=== PATIENT | male | born 1965 | race Caucasian/White ===

== ENCOUNTER 2017-02-06 07:27 | Emergency (ER) | payer BC, OTHER ==
[2017-02-06] MEDS ORDERED: Metoclopramide IV* 5 MG/ML 2 ML VIAL IV SLOW PU ONE (08:23)
[2017-02-06] MEDS ORDERED: NS 0.9% 1000 ML* 1,000 ML IV ONE (08:23)
[2017-02-06] MEDS ORDERED: Acetaminophen TAB* 325 MG PO ONE (08:23)
[2017-02-06] MEDS ORDERED: diPHENhydraMINE IV* 50 MG/ML 1 ml VIAL (BENADRYL) IV ONE (08:23)
[2017-02-06 08:49] LABS: Hematocrit 50 % (42-52); Hemoglobin 17.2 g/dl (14.0-18.0); Mean Corpuscular HGB Conc 34 g/dl (31-36); Mean Corpuscular Hemoglobin 28 pg (27-31); Mean Corpuscular Volume 80 fL (80-94); Mean Platelet Volume 10 um3 (7.4-10.4); Red Blood Count 6.27 10^6/ul (4.0-5.4); Red Cell Distribution Width 15 % (10.5-15)
--- NOTE | 2017-02-06 08:54 | RAD ---
Indication: Left-sided headaches. Patient on Coumadin. CT of the brain was performed without IV contrast. Ventricular structures are midline. No midline shift is noted. The extra-axial spaces are unremarkable. There is no evidence of intracranial mass or hemorrhage. No other high or low density lesions identified. Likely old lacunar infarct left basal ganglia unchanged from previous exam. Mastoid air cells demonstrates prior mastoidectomy. Paranasal sinuses are clear. IMPRESSION: No intracranial mass or hemorrhage is noted.
[2017-02-06 08:58] VITALS: BP 138/110
[2017-02-06 09:08] LABS: Albumin 4.2 g/dL (3.2-5.2); BUN/Creatinine Ratio 17.2 (8-20); C Reactive Protein 2.57 mg/L (< 5.00); Calcium 9.4 mg/dL (8.6-10.3); EGFR African American 101.7 (>60); EGFR Non-African American 79.1 (>60); Globulin 3.3 g/dL (2-4); Magnesium 1.8 mg/dL (1.9-2.7); Potassium 4.1 mmol/L (3.5-5.0); Total Bilirubin 1.6 mg/dL (0.2-1.0); Total Protein 7.5 g/dL (6.4-8.9)
[2017-02-06 09:47] LABS: TSH (Thyroid Stimulating Horm) 0.93 mcIU/mL (0.34-5.60)
--- NOTE | 2017-02-06 10:42 | ED ---
Georgie Mata Rebecca, scribed for Marv Ruiz MD on 02/06/17 at 0819 . Headache - HPI Summary HPI Summary: Pt is a 51 y/o M who presents to ED c/o HUGHES. Pt woke up at 0430 this morning with a sudden onset HUGHES that has been constant since onset. He was asymptomatic at 0030 this morning upon going to sleep. Pain is in the L-sided temporal region with occasional radiation to the front of the face. Pain is currently severe, ranked 8/10, though severity waxes and wanes and described as sharp. Sx aggravated and alleviated by nothing, unchanged by OTC medication (Tylenol), walking and turning his head. Denies nausea, weakness, numbness, slurred speech , vision loss, photophobia and neck pain. No recent illness. No recent trauma. Is on Coumadin s/p heart valve replacement. No PMHx headaches. - History Of Current Complaint Chief Complaint: EDHeadache Stated Complaint: HEADACHE Time Seen by Provider: 02/06/17 08:11 Hx Obtained From: Patient Onset/Duration: Sudden Onset Initially Headache Was: Moderate Currently Pain Is: Current Pain Scale(0-10)= - 8/10, Severe Timing: Constant Character: Sharp Location of Headache: Temporal - Left sided Radiates to: Face Aggravating Factor: Nothing Allevating Factors: Nothing Associated Signs And Symptoms: Negative - Allergies/Home Medications Allergies/Adverse Reactions: Allergies Allergy/AdvReac Type Severity Reaction Status Date / Time Gluten Meal Allergy GI Upset Verified 04/11/13 13:42 Lisinopril Allergy EXTREMELY Verified 05/20/16 09:17 SLEEPY Metoprolol Allergy EXTREMELY Verified 05/20/16 09:17 SLEEPY PMH/Surg Hx/FS Hx/Imm Hx Endocrine/Hematology History: Denies: Hx Diabetes Cardiovascular History: Reports: Hx Hypertension, Other Cardiovascular Problems/ Disorders - OBESITY Denies: Hx Pacemaker/ICD History: Denies: Hx Renal Disease Sensory History: Denies: Hx Hearing Aid Psychiatric History: Denies: Hx Panic Disorder - Surgical History Surgery Procedure, Year, and Place: HEART VALVE REPLACEMENT 2000 IS MECHANICAL - AT [facility] MECHANICAL AORTIC VALVE - [id number] - CONDITIONAL 5 UP TO 3T - MAX.SPATIAL GRADIENT less than or equal to 3000 Gauss/ cm;. T-TUBES FOR DRAINAGE;. TONSILLECTOMY; Infectious Disease History: No Infectious Disease History: Denies: Traveled Outside the [place] in Last 30 Days - Family History Known Family History: Positive: Cardiac Disease, Hypertension Negative: Diabetes - Social History Alcohol Use: Occasionally Hx Substance Use: No Substance Use Type: Reports: None Hx Tobacco Use: No Smoking Status (MU): Former Smoker Review of Systems Positive: Other - Denies vision loss. Negative: Photophobia Negative: Nausea Negative: Arthralgia - Denies neck pain Positive: Headache - /. Negative: Weakness, Numbness, Slurred Speech All Other Systems Reviewed And Are Negative: Yes Physical Exam - Summary Physical Exam Summary: Gen: well-appearing, no pain distress Skin: warm, color reflects adequate perfusion, dry Head: normal Eyes: EOMI, EDIL ENT: normal Neck: supple, nontender Resp: CTA, breath sounds present Cardio: RRR Abd: soft, nontender Bowel: present Musc: normal, strength/ROM intact Neuro: sensory/motor intact, A&O x3. Slightly slurred speech, but that is chronic. GCS is 15. Psych: affect/mood appropriate Triage Information Reviewed: Yes Vital Signs On Initial Exam: Initial Vitals Temp Pulse Resp BP Pulse Ox 97.8 F 87 17 170/112 95 02/06/17 07:36 02/06/17 07:36 02/06/17 07:36 02/06/17 07:36 02/06/17 07:36 Vital Signs Reviewed: Yes - Nadine Coma Scale Coma Scale Total: 15 Diagnostics - Vital Signs Vital Signs Temp Pulse Resp BP Pulse Ox 02/06/17 08:00 85 146/97 95 02/06/17 07:55 87 150/102 97 02/06/17 07:42 97.9 F 85 18 170/112 98 02/06/17 07:36 97.8 F 87 17 170/112 95 - Laboratory Lab Results: Lab Results 02/06/17 02/06/17 02/06/17 Range/Units 08:38 08:38 08:38 WBC 8.0 (3.5-10.8) 10^3/ul RBC 6.27 H (4.0-5.4) 10^6/ul Hgb 17.2 (14.0-18.0) g/dl Hct 50 (42-52) % MCV 80 (80-94) fL MCH 28 (27-31) pg MCHC 34 (31-36) g/dl RDW 15 (10.5-15) % Plt Count 139 L (150-450) 10^3/ul MPV 10 (7.4-10.4) um3 Neut % (Auto) 64.4 (38-83) % Lymph % (Auto) 22.3 L (25-47) % [place] % (Auto) 10.1 H (1-9) % Eos % (Auto) 2.5 (0-6) % Baso % (Auto) 0.7 (0-2) % Absolute Neuts (auto) 5.1 (1.5-7.7) 10^3/ul Absolute Lymphs (auto) 1.8 (1.0-4.8) 10^3/ul Absolute Monos (auto) 0.8 (0-0.8) 10^3/ul Absolute Eos (auto) 0.2 (0-0.6) 10^3/ul Absolute Basos (auto) 0.1 (0-0.2) 10^3/ul Absolute Nucleated RBC 0.01 10^3/ul Nucleated RBC % 0.1 INR (Anticoag Therapy) 2.74 H (0.89-1.11) APTT 53.2 H (26.0-36.3) seconds Sodium 132 L (133-145) mmol/L Potassium 4.1 (3.5-5.0) mmol/L Chloride 99 L (101-111) mmol/L Carbon Dioxide 25 (22-32) mmol/L Anion Gap 8 (2-11) mmol/L BUN 17 (6-24) mg/dL Creatinine 0.99 (0.67-1.17) mg/dL Est GFR ( Amer) 101.7 (>60) Est GFR (Non-Af Amer) 79.1 (>60) BUN/Creatinine Ratio 17.2 (8-20) Glucose 124 H (70-100) mg/dL Lactic Acid (0.5-2.0) mmol/L Calcium 9.4 (8.6-10.3) mg/dL Magnesium 1.8 L (1.9-2.7) mg/dL Total Bilirubin 1.60 H (0.2-1.0) mg/dL AST 36 (13-39) U/L ALT 43 (7-52) U/L Alkaline Phosphatase 72 (34-104) U/L C-Reactive Protein 2.57 (< 5.00) mg/L Total Protein 7.5 (6.4-8.9) g/dL Albumin 4.2 (3.2-5.2) g/dL Globulin 3.3 (2-4) g/dL Albumin/Globulin Ratio 1.3 (1-3) TSH 0.93 (0.34-5.60) mcIU/mL 02/06/17 Range/Units 08:38 WBC (3.5-10.8) 10^3/ul RBC (4.0-5.4) 10^6/ul Hgb (14.0-18.0) g/dl Hct (42-52) % MCV (80-94) fL MCH (27-31) pg MCHC (31-36) g/dl RDW (10.5-15) % Plt Count (150-450) 10^3/ul MPV (7.4-10.4) um3 Neut % (Auto) (38-83) % Lymph % (Auto) (25-47) % [place] % (Auto) (1-9) % Eos % (Auto) (0-6) % Baso % (Auto) (0-2) % Absolute Neuts (auto) (1.5-7.7) 10^3/ul Absolute Lymphs (auto) (1.0-4.8) 10^3/ul Absolute Monos (auto) (0-0.8) 10^3/ul Absolute Eos (auto) (0-0.6) 10^3/ul Absolute Basos (auto) (0-0.2) 10^3/ul Absolute Nucleated RBC 10^3/ul Nucleated RBC % INR (Anticoag Therapy) (0.89-1.11) APTT (26.0-36.3) seconds Sodium (133-145) mmol/L Potassium (3.5-5.0) mmol/L Chloride (101-111) mmol/L Carbon Dioxide (22-32) mmol/L Anion Gap (2-11) mmol/L BUN (6-24) mg/dL Creatinine (0.67-1.17) mg/dL Est GFR ( Amer) (>60) Est GFR (Non-Af Amer) (>60) BUN/Creatinine Ratio (8-20) Glucose (70-100) mg/dL Lactic Acid 1.6 (0.5-2.0) mmol/L Calcium (8.6-10.3) mg/dL Magnesium (1.9-2.7) mg/dL Total Bilirubin (0.2-1.0) mg/dL AST (13-39) U/L ALT (7-52) U/L Alkaline Phosphatase (34-104) U/L C-Reactive Protein (< 5.00) mg/L Total Protein (6.4-8.9) g/dL Albumin (3.2-5.2) g/dL Globulin (2-4) g/dL Albumin/Globulin Ratio (1-3) TSH (0.34-5.60) mcIU/mL Result Diagrams: 02/06/17 08:38 02/06/17 08:38 Lab Statement: Any lab studies that have been ordered have been reviewed, and results considered in the medical decision making process. - CT Brain CT CT Interpretation: No Acute Changes - No intracranial mass or hemorrhage is noted. CT Interpretation Completed By: Radiologist National Institutes Of Health - NIH Scale Level of Consciousness: Alert/Keenly Responsive Ask Patient the Month and His/Her Age: Both Correct Ask Pt to Open/Close Eyes and Human Resources Temp/Release Non-Paretic Hand: Both Correctly Best Gaze (Only Horizontal Eye Movement): Normal Visual Field Testing: No Visual Loss Facial Paresis-Pt to Smile & Close Eyes or Grimace Symmetry: Normal/Symmetrical Motor Function - Right Arm: No Drift-Holds 10 Seconds Motor Function - Left Arm: No Drift-Holds 10 Seconds Motor Function - Right Leg: No Drift-Holds 10 Seconds Motor Function - Left Leg: No Drift-Holds 10 Seconds Limb Ataxia-Must be out of Proportion to Weakness Present: Absent Sensory (Use Pinprick to Test Arms/Legs/Trunk/Face): Normal Best Language (Describe Picture, Name Items): No Aphasia Dysarthria (Read Several Words): Normal Extinction and Inattention: No Abnormality Total Score: 0 Re-Evaluation - Re-Evaluation First Eval Re-Evaluation Time: 10:37 Change: Improved Comment: Headache is resolved Headache Course/Dx - Course Course Of Treatment: A 51 y/o M presents to the ED with a CC of sharp severe headache since waking up at 0030. He denies nausea, weakness, numbness, slurred speech, vision loss, photophobia and neck pain. No recent illness. No recent trauma. Is on Coumadin s/p heart valve replacement. No PMHx headaches. Pt received Reglan, Benadryl and Tylenol in the course of the ED. Head CT reveals no acute findings. Assessment/Plan: DISCUSSED RESULTS WITH PATIENT. HUGHES GONE AFTER IVF, BENADRYL, REGLAN, ACETAMINOPHEN AND SLEEP. DISCHARGE HOME STABLE. NO CRITICAL CARE TIME. - Diagnoses Provider Diagnoses: Headache Discharge - Discharge Plan Condition: Stable Disposition: HOME Patient Education Materials: General Headache (ED) Referrals: Demetrius Riggins MD [Primary Care Provider] - Additional Instructions: FOLLOW UP WITH YOUR DOCTOR. RETURN TO THE EMERGENCY DEPARTMENT FOR ANY WORSENING OF YOUR CONDITION OR QUESTIONS OR CONCERNS. The documentation as recorded by the Georgie avila Rebecca accurately reflects the service I personally performed and the decisions made by me, Marv Ruiz MD.
== END 2017-02-06 10:46 | disposition home or self-care (01) ==
LOC: ED 07:27
DX: R51 Headache (principal); I10 Essential (primary) hypertension; Z95.2 Presence of prosthetic heart valve; Z79.01 Long term (current) use of anticoagulants; Z88.8 Allergy status to other drugs, medicaments and biological substances; Z87.891 Personal history of nicotine dependence
CPT/HCPCS: 36415; 70450; 80053; 83605; 83735; 84443; 85025; 85610; 85730; 86140; 96361; 96374; 96375; 99283; A9270-GY; J1200

== ENCOUNTER 2017-04-01 19:18 | Emergency (ER) | payer BC ==
[2017-04-01 21:54] LABS: Hematocrit 50 % (42-52); Hemoglobin 16.7 g/dl (14.0-18.0); Mean Corpuscular HGB Conc 34 g/dl (31-36); Mean Corpuscular Hemoglobin 28 pg (27-31); Mean Corpuscular Volume 82 fL (80-94); Mean Platelet Volume 10 um3 (7.4-10.4); Red Blood Count 6.06 10^6/ul (4.0-5.4); Red Cell Distribution Width 15 % (10.5-15); White Blood Count 8.7 10^3/ul (3.5-10.8)
[2017-04-01 22:09] LABS: Albumin 4.1 g/dL (3.2-5.2); BUN/Creatinine Ratio 14.5 (8-20); Calcium 9.3 mg/dL (8.6-10.3); EGFR African American 89.7 (>60); EGFR Non-African American 69.8 (>60); Globulin 3.1 g/dL (2-4); Magnesium 1.9 mg/dL (1.9-2.7); Potassium 3.9 mmol/L (3.5-5.0); Total Bilirubin 1.3 mg/dL (0.2-1.0); Total Protein 7.2 g/dL (6.4-8.9)
[2017-04-01 22:11] LABS: Troponin I 0.03 ng/mL (<0.04)
--- NOTE | 2017-04-01 22:29 | RAD ---
Indication: Palpitations. Chest pain, shortness of breath, diaphoresis. Cardiac valvular disease. Post aortic valve replacement. Comparison: June 02, 2016 Technique: Upright AP 2130 hours Report: Suboptimal inspiration for this patient compared with the prior exam with associated crowding of the pulmonary markings. Accounting for this there is no compelling alveolar consolidation. Negative for pleural effusion or pneumothorax. Median sternotomy wires. Cardiomegaly. Prosthetic aortic valve. Unremarkable central pulmonary vasculature. IMPRESSION: Suboptimal inspiration limits assessment. Mild interstitial edema is not excluded.
[2017-04-01] MEDS ORDERED: Magnesium Oxide TAB* 400 MG PO ONE (22:46)
[2017-04-02 01:39] VITALS: BP 133/101
--- NOTE | 2017-04-02 01:41 | ED ---
Pamela Mata Alfonso, scribed for Christine Simeon MD on 04/01/17 at 2148 . Palpitations / Dysrhythmia - HPI Summary HPI Summary: This patient is a 52 year old M presenting to [facility] accompanied by niece with a chief complaint of palpitations at 1830 today. The CC is described as a boom lasting for 3 minutes. He reports he heard the boom but did not feel it. Pt rates the pain 0/10 in severity. Symptoms aggravated by nothing. Pt denies CP, SOB, and diaphoresis. He had dental work done today. Pt lives alone. He denies substance, ETOH, and tobacco use. PMHx of HTN, asthma, and mechanical heart valve. - History of Current Complaint Chief Complaint: EDDysrhythmPalp Time Seen by Provider: 04/01/17 20:51 Hx Obtained From: Patient Onset/Duration: Sudden Onset - 1829 today, Lasting Minutes - 3, Resolved Timing: Constant Severity Initially: Moderate Severity Currently: None Character: Pounding - "Boom" Aggravating: Nothing - Allergy/Home Medications Allergies/Adverse Reactions: Allergies Allergy/AdvReac Type Severity Reaction Status Date / Time Gluten Meal Allergy GI Upset Verified 04/11/13 13:42 Lisinopril Allergy EXTREMELY Verified 05/20/16 09:17 SLEEPY Metoprolol Allergy EXTREMELY Verified 05/20/16 09:17 SLEEPY PMH/Surg Hx/FS Hx/Imm Hx Endocrine/Hematology History: Denies: Hx Diabetes Cardiovascular History: Reports: Hx Hypertension, Other Cardiovascular Problems/ Disorders - mechanical heart valve Denies: Hx Pacemaker/ICD Respiratory History: Reports: Hx Asthma History: Denies: Hx Renal Disease Sensory History: Denies: Hx Hearing Aid Psychiatric History: Denies: Hx Panic Disorder - Surgical History Surgery Procedure, Year, and Place: HEART VALVE REPLACEMENT 2000 IS MECHANICAL - AT [facility] MECHANICAL AORTIC VALVE - [id number] - CONDITIONAL 5 UP TO 3T - MAX.SPATIAL GRADIENT less than or equal to 3000 Gauss/ cm;. T-TUBES FOR DRAINAGE;. TONSILLECTOMY; Infectious Disease History: No Infectious Disease History: Denies: Traveled Outside the [place] in Last 30 Days - Family History Known Family History: Positive: Cardiac Disease, Hypertension, Diabetes - Social History Lives: Alone Alcohol Use: Occasionally Hx Substance Use: No Substance Use Type: Reports: None Hx Tobacco Use: No Smoking Status (MU): Former Smoker Review of Systems Negative: Skin Diaphoresis Positive: Palpitations - "boom" 3 minutes. Negative: Chest Pain Negative: Shortness Of Breath All Other Systems Reviewed And Are Negative: Yes Physical Exam Triage Information Reviewed: Yes Vital Signs On Initial Exam: Initial Vitals Temp Pulse Resp BP Pulse Ox 97.9 F 98 16 174/107 96 04/01/17 19:30 04/01/17 19:30 04/01/17 19:30 04/01/17 19:30 04/01/17 19:30 Vital Signs Reviewed: Yes Appearance: Positive: Well-Appearing, No Pain Distress, Obese Skin: Positive: Warm, Skin Color Reflects Adequate Perfusion, Dry Eyes: Positive: EOMI, EDIL ENT: Positive: Pharynx normal, TMs normal Neck: Positive: Supple, Nontender Respiratory/Lung Sounds: Positive: Clear to Auscultation, Breath Sounds Present. Negative: Rales, Rhonchi, Wheezes Cardiovascular: Positive: Tachycardia, Other - No gallop. Negative: Murmur, Rub Abdomen Description: Positive: Nontender, Soft, Other: - No rebound. Negative: Distended, Guarding Bowel Sounds: Positive: Present Musculoskeletal: Positive: Strength/ROM Intact, Other - No edema Neurological: Positive: Sensory/Motor Intact, Alert, Oriented to Person Place, Time, CN Intact II-III - 2-12 Psychiatric: Positive: Affect/Mood Appropriate - Nadine Coma Scale Coma Scale Total: 15 Diagnostics - Vital Signs Vital Signs Temp Pulse Resp BP Pulse Ox 04/01/17 20:29 97.9 F 98 16 146/107 95 04/01/17 19:30 97.9 F 98 16 174/107 96 - Laboratory Lab Results: Lab Results 04/01/17 04/01/17 04/01/17 Range/Units 21:45 21:45 21:45 WBC 8.7 (3.5-10.8) 10^3/ul RBC 6.06 H (4.0-5.4) 10^6/ul Hgb 16.7 (14.0-18.0) g/dl Hct 50 (42-52) % MCV 82 (80-94) fL MCH 28 (27-31) pg MCHC 34 (31-36) g/dl RDW 15 (10.5-15) % Plt Count 135 L (150-450) 10^3/ul MPV 10 (7.4-10.4) um3 Neut % (Auto) 47.5 (38-83) % Lymph % (Auto) 36.1 (25-47) % [place] % (Auto) 11.7 H (1-9) % Eos % (Auto) 3.9 (0-6) % Baso % (Auto) 0.8 (0-2) % Absolute Neuts (auto) 4.1 (1.5-7.7) 10^3/ul Absolute Lymphs (auto) 3.2 (1.0-4.8) 10^3/ul Absolute Monos (auto) 1.0 H (0-0.8) 10^3/ul Absolute Eos (auto) 0.3 (0-0.6) 10^3/ul Absolute Basos (auto) 0.1 (0-0.2) 10^3/ul Absolute Nucleated RBC 0.01 10^3/ul Nucleated RBC % 0.1 INR (Anticoag Therapy) 2.96 H (0.89-1.11) Sodium 137 (133-145) mmol/L Potassium 3.9 (3.5-5.0) mmol/L Chloride 101 (101-111) mmol/L Carbon Dioxide 31 (22-32) mmol/L Anion Gap 5 (2-11) mmol/L BUN 16 (6-24) mg/dL Creatinine 1.10 (0.67-1.17) mg/dL Est GFR ( Amer) 89.7 (>60) Est GFR (Non-Af Amer) 69.8 (>60) BUN/Creatinine Ratio 14.5 (8-20) Glucose 134 H (70-100) mg/dL Lactic Acid (0.5-2.0) mmol/L Calcium 9.3 (8.6-10.3) mg/dL Magnesium 1.9 (1.9-2.7) mg/dL Total Bilirubin 1.30 H (0.2-1.0) mg/dL AST 35 (13-39) U/L ALT 43 (7-52) U/L Alkaline Phosphatase 63 (34-104) U/L Troponin I 0.03 (<0.04) ng/mL Total Protein 7.2 (6.4-8.9) g/dL Albumin 4.1 (3.2-5.2) g/dL Globulin 3.1 (2-4) g/dL Albumin/Globulin Ratio 1.3 (1-3) 04/01/17 04/02/17 Range/Units 21:45 00:30 WBC (3.5-10.8) 10^3/ul RBC (4.0-5.4) 10^6/ul Hgb (14.0-18.0) g/dl Hct (42-52) % MCV (80-94) fL MCH (27-31) pg MCHC (31-36) g/dl RDW (10.5-15) % Plt Count (150-450) 10^3/ul MPV (7.4-10.4) um3 Neut % (Auto) (38-83) % Lymph % (Auto) (25-47) % [place] % (Auto) (1-9) % Eos % (Auto) (0-6) % Baso % (Auto) (0-2) % Absolute Neuts (auto) (1.5-7.7) 10^3/ul Absolute Lymphs (auto) (1.0-4.8) 10^3/ul Absolute Monos (auto) (0-0.8) 10^3/ul Absolute Eos (auto) (0-0.6) 10^3/ul Absolute Basos (auto) (0-0.2) 10^3/ul Absolute Nucleated RBC 10^3/ul Nucleated RBC % INR (Anticoag Therapy) (0.89-1.11) Sodium (133-145) mmol/L Potassium (3.5-5.0) mmol/L Chloride (101-111) mmol/L Carbon Dioxide (22-32) mmol/L Anion Gap (2-11) mmol/L BUN (6-24) mg/dL Creatinine (0.67-1.17) mg/dL Est GFR ( Amer) (>60) Est GFR (Non-Af Amer) (>60) BUN/Creatinine Ratio (8-20) Glucose (70-100) mg/dL Lactic Acid 1.3 (0.5-2.0) mmol/L Calcium (8.6-10.3) mg/dL Magnesium (1.9-2.7) mg/dL Total Bilirubin (0.2-1.0) mg/dL AST (13-39) U/L ALT (7-52) U/L Alkaline Phosphatase (34-104) U/L Troponin I 0.03 (<0.04) ng/mL Total Protein (6.4-8.9) g/dL Albumin (3.2-5.2) g/dL Globulin (2-4) g/dL Albumin/Globulin Ratio (1-3) Result Diagrams: 04/01/17 21:45 04/01/17 21:45 Lab Statement: Any lab studies that have been ordered have been reviewed, and results considered in the medical decision making process. - Radiology CXR Radiology Interpretation Completed By: Radiologist - Suboptimal inspiration limits assessment. Mild interstitial edema is not excluded. - EKG 1941 Cardiac Rate: Tachycardia - BPM 94 EKG Rhythm: Sinus Tachycardia EKG Interpretation: Frequent PVCs EKG Comparison: Other - No PVCs at 01/10/16 Course/Dx - Course Course Of Treatment: 52 yo male who heard a boom in his chest with ekg showing frequent pvc's 6 hour trop negative. borderline low potassium and mag ok both repleted - Diagnoses Provider Diagnoses: Palpitations Discharge - Discharge Plan Condition: Stable Disposition: HOME Patient Education Materials: Palpitations (ED) Referrals: Demetrius Riggins MD [Primary Care Provider] - 3 Days The documentation as recorded by the Pamela avila Alfonso accurately reflects the service I personally performed and the decisions made by me, Christine Simeon MD.
== END 2017-04-02 01:47 | disposition home or self-care (01) ==
LOC: ED 19:18
DX: R00.2 Palpitations (principal); Z95.2 Presence of prosthetic heart valve; I10 Essential (primary) hypertension; J45.909 Unspecified asthma, uncomplicated; Z87.891 Personal history of nicotine dependence
CPT/HCPCS: 36415; 71010; 80053; 83605; 83735; 84484; 85025; 85610; 93005; 99283

== ENCOUNTER 2019-02-17 19:08 | Emergency (ER) | payer BC ==
[2019-02-17 19:16] VITALS: BP 167/109
== END 2019-02-17 21:35 | disposition left against medical advice (07) ==
LOC: ED 19:08
DX: R51 Headache (principal); Z53.21 Procedure and treatment not carried out due to patient leaving prior to being seen by health care provider

== ENCOUNTER 2023-09-09 07:07 | Observation (INO) ==
[2023-09-09 07:41] LABS: ABS Basophils 0.1 10^3/uL (0.0-0.1); ABS Eosinophils 0.2 10^3/uL (0.0-0.5); ABS Lymphocytes 1.7 10^3/uL (1.0-4.8); ABS Monocytes 1.2 10^3/uL (0.0-1.1); ABS Neutrophils 5.3 10^3/uL (1.5-7.6); ABS Nucleated RBC 0.01 10^3/ul; Eosinophil % 2.1 %; Hematocrit 40.7 % (38-53); Hemoglobin 13.8 g/dL (13.2-16.3); Lymphocyte % 20.2 %; Mean Corpuscular Hemoglobin 28.7 pg (27-33); Mean Corpuscular Hgb Conc 33.9 g/dL (31-36); Mean Corpuscular Volume 84.6 fL (80-97); Nucleated Red Blood Cells % 0.1 %/100WBC (0.0-0.8); Platelet Count 150 10^3/uL (150-450); Red Blood Count 4.81 10^6/uL (4.06-5.63); White Blood Count 8.5 10^3/uL (3.6-10.2)
[2023-09-09] MEDS ORDERED: NS 0.9% 1000 ml BAG 1,000 ML IV ONE (07:49)
[2023-09-09] MEDS ORDERED: Metoclopramide 5 MG/ML VIAL (10 mg) IV ONE (07:50)
[2023-09-09 07:52] LABS: Albumin 3.9 g/dL (3.2-5.2); Albumin/Globulin Ratio 1.5 (1-3); Calcium 8.5 mg/dL (8.6-10.3); Creatinine, Serum 1.29 mg/dL (0.67-1.17); Globulin 2.6 g/dL (2-4); Potassium 3.8 mmol/L (3.5-5.0); Total Bilirubin 2.6 mg/dL (0.2-1.0); Total Protein 6.5 g/dL (6.4-8.9); eGFR CKD-EPI 63.5 (>60)
[2023-09-09 08:23] LABS: Magnesium 1.8 mg/dL (1.9-2.7)
[2023-09-09 08:50] LABS: INR 3.45 (0.83-1.13)
[2023-09-09 09:10] LABS: High Sensitivity Troponin 1 Hr 24 pg/mL (<20)
[2023-09-09] MEDS ORDERED: Magnesium Sulfate 2 gm BAG 2 GM/50 ML BAG IVPB ONE (09:58)
[2023-09-09] MEDS ORDERED: Furosemide 40 mg/4 ml IV VIAL IV ONE ×2 (12:09→15:01)
[2023-09-09] MEDS ORDERED: Warfarin per PHARMACY **NOTE FOLLOW UP SCH (15:00)
[2023-09-09] MEDS: Metoprolol Tartrate 5 mg VIAL 5 ml VIAL (1 mg/ml) IV PRN ×2 (16:32→21:06)
[2023-09-09] MEDS ORDERED: Warfarin - No Order Today **NOTE FOLLOW UP ONE (17:00)
[2023-09-09] MEDS: Warfarin DAILY REMINDER **NOTE FOLLOW UP SCH (18:23)
[2023-09-09] MEDS ORDERED: Lidocaine PATCH 4% TOPICAL PRN (21:12)
[2023-09-09] MEDS ORDERED: Metoprolol Tartrate 5 mg VIAL 5 ml VIAL (1 mg/ml) IV ONE (22:35)
[2023-09-10] MEDS ORDERED: Metoprolol Tartrate 5 mg VIAL 5 ml VIAL (1 mg/ml) IV ONE (01:08)
[2023-09-10] MEDS ORDERED: Haloperidol 5 mg/ml SDV IV/IM 5 MG/ML AMP IM ONE (01:21)
[2023-09-10 05:56] LABS: Hematocrit 40.7 % (38-53); Hemoglobin 14.1 g/dL (13.2-16.3); Mean Corpuscular Hemoglobin 29.3 pg (27-33); Mean Corpuscular Hgb Conc 34.6 g/dL (31-36); Mean Corpuscular Volume 84.6 fL (80-97); Mean Platelet Volume 10.3 fL (7.5-11.2); Platelet Count 151 10^3/uL (150-450); Red Blood Count 4.81 10^6/uL (4.06-5.63); White Blood Count 8.9 10^3/uL (3.6-10.2)
[2023-09-10 06:03] LABS: INR 3.68 (0.83-1.13)
[2023-09-10 06:41] LABS: Albumin 4.1 g/dL (3.2-5.2); Albumin/Globulin Ratio 1.5 (1-3); Calcium 8.9 mg/dL (8.6-10.3); Creatinine, Serum 1.18 mg/dL (0.67-1.17); Globulin 2.7 g/dL (2-4); Potassium 3.9 mmol/L (3.5-5.0); Total Bilirubin 3.5 mg/dL (0.2-1.0); Total Protein 6.8 g/dL (6.4-8.9); eGFR CKD-EPI 70.6 (>60)
[2023-09-10] MEDS ORDERED: Furosemide 40 mg/4 ml IV VIAL IV ONE ×2 (09:00)
[2023-09-10] MEDS ORDERED: Midazolam 10 mg/10 ml VIAL 1 mg/ml 10 ml VIAL (10 mg) IV SLOW PU ONE (10:04)
[2023-09-10] MEDS ORDERED: fentaNYL 100 mcg/2 ml 50 MCG/ML VIAL IV SLOW PU ONE (10:04)
[2023-09-10] MEDS: Metoprolol Tartrate 5 mg VIAL 5 ml VIAL (1 mg/ml) IV PRN (14:00)
[2023-09-10] MEDS ORDERED: fentaNYL 100 mcg/2 ml 50 MCG/ML VIAL ONE (15:23)
[2023-09-10] MEDS ORDERED: Midazolam 5 mg/5 ml VIAL 1 mg/ml 5 ml VIAL (5 mg) ONE (15:23)
[2023-09-10] MEDS ORDERED: Naloxone 0.4 mg VIAL 0.4 mg/ml 1 ml VIAL ONE (15:23)
[2023-09-10] MEDS ORDERED: Flumazenil 0.5 mg/5 ml 0.1 MG/ML 5 ml VIAL ONE (15:23)
[2023-09-10] MEDS ORDERED: Sulfur Hexaflouride MICROSPHR 25 MG VIAL ONE (15:59)
[2023-09-10] MEDS: Warfarin DAILY REMINDER **NOTE FOLLOW UP SCH (17:01)
[2023-09-11 06:55] LABS: INR 3.24 (0.83-1.13)
[2023-09-11 07:07] LABS: Calcium 8.9 mg/dL (8.6-10.3); Creatinine, Serum 1.11 mg/dL (0.67-1.17)
[2023-09-11] MEDS ORDERED: Furosemide 40 mg/4 ml IV VIAL IV SLOW PU ONE (10:12)
[2023-09-11 16:25] VITALS: BP 118/79
== END 2023-09-11 15:45 | disposition home or self-care (01) ==
LOC: EDHOLD 07:07 → ED 07:07 → MEDTELE 15:16
PROVIDERS: ADMIT Internal Medicine; ATTEND Internal Medicine
PROC: CARDVER (ICD-10-PCS; 2023-09-10 15:15)

== ENCOUNTER 2023-09-11 22:33 | Inpatient (IN) ==
[2023-09-11 23:09] LABS: ABS Basophils 0.1 10^3/uL (0.0-0.1); ABS Eosinophils 0.1 10^3/uL (0.0-0.5); ABS Lymphocytes 1.4 10^3/uL (1.0-4.8); ABS Monocytes 1.2 10^3/uL (0.0-1.1); ABS Neutrophils 6.1 10^3/uL (1.5-7.6); ABS Nucleated RBC 0.01 10^3/ul; Eosinophil % 1.4 %; Hematocrit 41.9 % (38-53); Hemoglobin 14.9 g/dL (13.2-16.3); Lymphocyte % 15.8 %; Mean Corpuscular Hemoglobin 29.4 pg (27-33); Mean Corpuscular Hgb Conc 35.5 g/dL (31-36); Mean Corpuscular Volume 82.9 fL (80-97); Nucleated Red Blood Cells % 0.2 %/100WBC (0.0-0.8); Platelet Count 180 10^3/uL (150-450); Red Blood Count 5.06 10^6/uL (4.06-5.63); Red Cell Distribution Width 15.1 % (12-17)
[2023-09-11] MEDS ORDERED: Digoxin IV 0.5 MG/2 ML AMP (0.25 MG/ML) IV SLOW PU ONE (23:24)
[2023-09-11 23:34] LABS: Albumin 4.3 g/dL (3.2-5.2); Albumin/Globulin Ratio 1.5 (1-3); C Reactive Protein 22.04 mg/L (<8.01); Calcium 8.8 mg/dL (8.6-10.3); Creatinine, Serum 0.98 mg/dL (0.67-1.17); Globulin 2.9 g/dL (2-4); Total Bilirubin 3.6 mg/dL (0.2-1.0); Total Protein 7.2 g/dL (6.4-8.9); eGFR CKD-EPI 88.3 (>60)
[2023-09-12 00:45] LABS: INR 2.87 (0.83-1.13)
[2023-09-12 01:12] LABS: High Sensitivity Troponin 1 Hr 27 pg/mL (<20)
[2023-09-12] MEDS ORDERED: Iodixanol (CONTRAST) 320 MG/ML 100 ML SDV IV ONE (02:07)
[2023-09-12 04:18] LABS: Urine Appearance Clear; Urine Bilirubin Negative (Negative); Urine Blood Negative (Negative); Urine Color Yellow; Urine Glucose Negative (Negative); Urine Ketones Negative (Negative); Urine Nitrite Negative (Negative); Urine Protein Negative (Negative); Urine Specific Gravity 1.026 (1.002-1.030); Urine Urobilinogen Negative (Negative)
[2023-09-12 04:28] LABS: Urine Benzodiazepine Screen None Detected (None Detect); Urine Cannabinoids Screen None Detected (None Detect); Urine Opiates Screen None Detected (None Detect)
[2023-09-12] MEDS ORDERED: Warfarin per PHARMACY **NOTE FOLLOW UP SCH (06:00)
[2023-09-12] MEDS ORDERED: Furosemide 40 mg/4 ml IV VIAL IV SLOW PU ONE (06:33)
[2023-09-12] MEDS: Pantoprazole VIAL 40 MG VIAL IV SCH (06:44)
[2023-09-12] MEDS ORDERED: Furosemide 20 mg/2 ml IV VIAL IV SLOW PU ONE (06:45)
[2023-09-12 07:17] LABS: ABS Basophils 0.1 10^3/uL (0.0-0.1); ABS Eosinophils 0.2 10^3/uL (0.0-0.5); ABS Lymphocytes 1.8 10^3/uL (1.0-4.8); ABS Monocytes 0.9 10^3/uL (0.0-1.1); ABS Neutrophils 3.8 10^3/uL (1.5-7.6); ABS Nucleated RBC 0.01 10^3/ul; Eosinophil % 2.5 %; Hematocrit 38.7 % (38-53); Hemoglobin 13.3 g/dL (13.2-16.3); Lymphocyte % 26.6 %; Mean Corpuscular Hemoglobin 28.7 pg (27-33); Mean Corpuscular Hgb Conc 34.3 g/dL (31-36); Mean Corpuscular Volume 83.7 fL (80-97); Mean Platelet Volume 9.9 fL (7.5-11.2); Nucleated Red Blood Cells % 0.1 %/100WBC (0.0-0.8); Platelet Count 150 10^3/uL (150-450); Red Blood Count 4.62 10^6/uL (4.06-5.63); Red Cell Distribution Width 14.9 % (12-17); White Blood Count 6.7 10^3/uL (3.6-10.2)
[2023-09-12 07:58] LABS: Calcium 8.2 mg/dL (8.6-10.3); Creatinine, Serum 0.93 mg/dL (0.67-1.17); Magnesium 1.9 mg/dL (1.9-2.7); Potassium 3.4 mmol/L (3.5-5.0)
[2023-09-12] MEDS ORDERED: Potassium Chlor 20 meq TAB.ER PO ONE (08:04)
[2023-09-12] MEDS ORDERED: Morphine 2 MG/ML SYRINGE IV ONE (08:11)
[2023-09-12] MEDS ORDERED: Senna TAB 8.6 mg TAB PO PRN (11:49)
[2023-09-12] MEDS: Polyethylene Glycol 3350 17 GM PACKET PO SCH (15:06)
[2023-09-12] MEDS: Warfarin DAILY REMINDER **NOTE FOLLOW UP SCH (17:00)
[2023-09-13 07:11] LABS: INR 1.77 (0.83-1.13)
[2023-09-13 07:12] LABS: Calcium 8.6 mg/dL (8.6-10.3); Creatinine, Serum 0.97 mg/dL (0.67-1.17); Potassium 3.7 mmol/L (3.5-5.0); eGFR CKD-EPI 89.4 (>60)
[2023-09-13] MEDS ORDERED: Potassium EFFERVES 25 meq TAB PO ONE (07:23)
[2023-09-13] MEDS: Pantoprazole VIAL 40 MG VIAL IV SCH (08:59)
[2023-09-13] MEDS: Polyethylene Glycol 3350 17 GM PACKET PO SCH (09:00)
[2023-09-13] MEDS ORDERED: Digoxin IV 0.5 MG/2 ML AMP (0.25 MG/ML) IV SLOW PU ONE (09:17)
[2023-09-13 09:56] LABS: INR 1.72 (0.83-1.13)
[2023-09-13] MEDS: Enoxaparin 100 MG/ML SYR SUBCUT SCH (12:40)
[2023-09-13] MEDS: Warfarin DAILY REMINDER **NOTE FOLLOW UP SCH (16:59)
[2023-09-13] MEDS ORDERED: Metoprolol Tartrate 5 mg VIAL 5 ml VIAL (1 mg/ml) IV PRN (22:41)
[2023-09-14] MEDS: Enoxaparin 100 MG/ML SYR SUBCUT SCH ×2 (00:02→10:22)
[2023-09-14 06:46] LABS: INR 1.87 (0.83-1.13)
[2023-09-14 07:00] LABS: Calcium 8.9 mg/dL (8.6-10.3); Creatinine, Serum 1.11 mg/dL (0.67-1.17); Potassium 4.2 mmol/L (3.5-5.0)
[2023-09-14] MEDS: Polyethylene Glycol 3350 17 GM PACKET PO SCH (09:14)
[2023-09-14] MEDS ORDERED: Digoxin IV 0.5 MG/2 ML AMP (0.25 MG/ML) IV SLOW PU ONE ×3 (09:47→14:52)
[2023-09-14] MEDS: Warfarin DAILY REMINDER **NOTE FOLLOW UP SCH (17:17)
[2023-09-15] MEDS: Enoxaparin 100 MG/ML SYR SUBCUT SCH ×2 (00:05→11:25)
[2023-09-15 07:29] LABS: INR 1.89 (0.83-1.13)
[2023-09-15 07:50] LABS: Calcium 9.3 mg/dL (8.6-10.3); Creatinine, Serum 1.25 mg/dL (0.67-1.17); Magnesium 2.1 mg/dL (1.9-2.7); Potassium 4.1 mmol/L (3.5-5.0); eGFR CKD-EPI 65.9 (>60)
[2023-09-15] MEDS: Polyethylene Glycol 3350 17 GM PACKET PO SCH (09:58)
[2023-09-15] MEDS: Warfarin DAILY REMINDER **NOTE FOLLOW UP SCH (18:14)
[2023-09-15] MEDS ORDERED: cefTRIAXone 2 gm/50 mL D5W 2 GM/50 ML BAG IV SCH (18:45)
[2023-09-15] MEDS ORDERED: Azithromycin 500 mg/250 ml NS 500 MG/250 ML BAG IVPB SCH (19:00)
[2023-09-15 19:07] LABS: Calcium 9.1 mg/dL (8.6-10.3); Creatinine, Serum 1.36 mg/dL (0.67-1.17); Magnesium 2.1 mg/dL (1.9-2.7); Potassium 4.5 mmol/L (3.5-5.0); eGFR CKD-EPI 59.6 (>60)
[2023-09-16] MEDS: Enoxaparin 100 MG/ML SYR SUBCUT SCH ×2 (03:23→04:41)
[2023-09-16 07:18] LABS: INR 2.14 (0.83-1.13)
[2023-09-16] MEDS ORDERED: NF:DAPAGLIFLOZIN 10 MG TAB (NF) PO SCH (09:00)
[2023-09-16] MEDS: Polyethylene Glycol 3350 17 GM PACKET PO SCH (09:52)
[2023-09-16 10:09] LABS: Calcium 9.1 mg/dL (8.6-10.3); Creatinine, Serum 1.19 mg/dL (0.67-1.17); Potassium 4.1 mmol/L (3.5-5.0); eGFR CKD-EPI 69.9 (>60)
[2023-09-16 14:50] VITALS: BP 151/85
[2023-09-16] MEDS ORDERED: Enoxaparin 100 MG/ML SYR SUBCUT SCH (17:00)
== END 2023-09-16 16:17 | disposition home or self-care (01) | DRG 309 ==
LOC: ED 22:33 → EDHOLD 22:33 → SUATTDRO 09-12 03:39 → MEDTELE 09-12 13:08
PROVIDERS: ADMIT Internal Medicine; ATTEND Student in an Organized Health Care Education/Training Program

== ENCOUNTER 2023-10-23 06:05 | Inpatient (IN) ==
[2023-10-23] MEDS: Lactated Ringers 1000 ml BAG 1,000 ML IV ONE ×2 (06:46→12:05)
[2023-10-23 06:50] LABS: ABS Basophils 0.1 10^3/uL (0.0-0.1); ABS Eosinophils 0.2 10^3/uL (0.0-0.5); ABS Lymphocytes 1.9 10^3/uL (1.0-4.8); ABS Neutrophils 2.7 10^3/uL (1.5-7.6); ABS Nucleated RBC 0.01 10^3/ul; Eosinophil % 3.4 %; Hematocrit 43.5 % (38-53); Hemoglobin 14.9 g/dL (13.2-16.3); Lymphocyte % 32.2 %; Mean Corpuscular Hemoglobin 28.3 pg (27-33); Mean Corpuscular Hgb Conc 34.2 g/dL (31-36); Mean Corpuscular Volume 82.5 fL (80-97); Mean Platelet Volume 9.2 fL (7.5-11.2); Nucleated Red Blood Cells % 0.2 %/100WBC (0.0-0.8); Platelet Count 169 10^3/uL (150-450); Red Blood Count 5.26 10^6/uL (4.06-5.63); Red Cell Distribution Width 15.3 % (12-17); White Blood Count 5.9 10^3/uL (3.6-10.2)
[2023-10-23 06:58] LABS: INR 1.93 (0.83-1.13)
[2023-10-23 07:09] LABS: Albumin 3.8 g/dL (3.2-5.2); Albumin/Globulin Ratio 1.3 (1-3); Calcium 9.1 mg/dL (8.6-10.3); Creatinine, Serum 0.99 mg/dL (0.67-1.17); Potassium 3.6 mmol/L (3.5-5.0); Total Protein 6.8 g/dL (6.4-8.9); eGFR CKD-EPI 87.2 (>60)
[2023-10-23 08:19] LABS: High Sensitivity Troponin 1 Hr 64 pg/mL (<20)
[2023-10-23] MEDS: Magnesium Sulfate 2 gm BAG 2 GM/50 ML BAG IVPB ONE ×2 (08:19→11:17)
[2023-10-23] MEDS: Potassium Chloride LIQUID 20 MEQ/15 ML LIQUID PO ONE (08:20)
[2023-10-23] MEDS: Enoxaparin 100 MG/ML SYR SUBCUT ONE (09:43)
[2023-10-23] MEDS: Furosemide 40 mg/4 ml IV VIAL IV ONE (09:59)
[2023-10-23] MEDS: Potassium Chlor 20 meq TAB.ER PO ONE (11:16)
[2023-10-23] MEDS: Amiodarone 400 mg TAB PO SCH (11:16)
[2023-10-23] MEDS ORDERED: Warfarin per PHARMACY **NOTE FOLLOW UP SCH (12:00)
[2023-10-23 15:33] LABS: Creatinine, Serum 1.15 mg/dL (0.67-1.17); Magnesium 2.2 mg/dL (1.9-2.7); Potassium 4.7 mmol/L (3.5-5.0); eGFR CKD-EPI 72.9 (>60)
[2023-10-23] MEDS: Lactated Ringers 1000 ml BAG 500 ML IV ONE (15:39)
[2023-10-23] MEDS: Enoxaparin 100 MG/ML SYR SUBCUT SCH (21:08)
[2023-10-24 05:50] LABS: ABS Eosinophils 0.1 10^3/uL (0.0-0.5); ABS Lymphocytes 1.8 10^3/uL (1.0-4.8); ABS Neutrophils 4.8 10^3/uL (1.5-7.6); ABS Nucleated RBC 0.02 10^3/ul; Eosinophil % 1.7 %; Hematocrit 43.4 % (38-53); Hemoglobin 14.7 g/dL (13.2-16.3); Lymphocyte % 23.7 %; Mean Corpuscular Hemoglobin 28.3 pg (27-33); Mean Corpuscular Hgb Conc 33.8 g/dL (31-36); Mean Corpuscular Volume 83.7 fL (80-97); Mean Platelet Volume 9.6 fL (7.5-11.2); Nucleated Red Blood Cells % 0.2 %/100WBC (0.0-0.8); Platelet Count 194 10^3/uL (150-450); Red Blood Count 5.19 10^6/uL (4.06-5.63); Red Cell Distribution Width 15.2 % (12-17); White Blood Count 7.7 10^3/uL (3.6-10.2)
[2023-10-24 05:56] LABS: INR 2.52 (0.83-1.13)
[2023-10-24 06:08] LABS: Calcium 9.3 mg/dL (8.6-10.3); Creatinine, Serum 1.34 mg/dL (0.67-1.17); Magnesium 2.1 mg/dL (1.9-2.7); Potassium 4.3 mmol/L (3.5-5.0); eGFR CKD-EPI 60.6 (>60)
[2023-10-24] MEDS: Warfarin DAILY REMINDER **NOTE FOLLOW UP SCH (07:38)
[2023-10-24] MEDS ORDERED: Enoxaparin 100 MG/ML SYR SUBCUT SCH (11:00)
[2023-10-24] MEDS: Midazolam 10 mg/10 ml VIAL 1 mg/ml 10 ml VIAL (10 mg) ONE (14:39)
[2023-10-24] MEDS: fentaNYL 100 mcg/2 ml 50 MCG/ML VIAL ONE (14:39)
[2023-10-24] MEDS: fentaNYL 100 mcg/2 ml 50 MCG/ML VIAL IV SLOW PU ONE (14:40)
[2023-10-24] MEDS: Midazolam 10 mg/10 ml VIAL 1 mg/ml 10 ml VIAL (10 mg) IV SLOW PU ONE (14:41)
[2023-10-24] MEDS: NS 0.9% 1000 ml BAG 1,000 ML IV ONE (17:03)
[2023-10-25 05:29] LABS: ABS Basophils 0.1 10^3/uL (0.0-0.1); ABS Eosinophils 0.1 10^3/uL (0.0-0.5); ABS Lymphocytes 2.5 10^3/uL (1.0-4.8); ABS Monocytes 1.1 10^3/uL (0.0-1.1); ABS Neutrophils 6.9 10^3/uL (1.5-7.6); ABS Nucleated RBC 0.02 10^3/ul; Eosinophil % 1.1 %; Hematocrit 43.4 % (38-53); Hemoglobin 14.8 g/dL (13.2-16.3); Lymphocyte % 23.1 %; Mean Corpuscular Hemoglobin 28.5 pg (27-33); Mean Corpuscular Hgb Conc 34.1 g/dL (31-36); Mean Corpuscular Volume 83.6 fL (80-97); Mean Platelet Volume 9.3 fL (7.5-11.2); Nucleated Red Blood Cells % 0.2 %/100WBC (0.0-0.8); Platelet Count 202 10^3/uL (150-450); Red Blood Count 5.18 10^6/uL (4.06-5.63); Red Cell Distribution Width 15.4 % (12-17); White Blood Count 10.7 10^3/uL (3.6-10.2)
[2023-10-25 05:48] LABS: Calcium 9.3 mg/dL (8.6-10.3); Creatinine, Serum 1.34 mg/dL (0.67-1.17); Potassium 4.6 mmol/L (3.5-5.0); eGFR CKD-EPI 60.6 (>60)
[2023-10-25 05:52] LABS: INR 2.53 (0.83-1.13)
[2023-10-25] MEDS: Furosemide 20 mg/2 ml IV VIAL IV ONE (10:58)
[2023-10-25] MEDS ORDERED: Phenylephrine 40 mcg/mL 10mL (400mcg) SYRINGE ONE (13:51)
[2023-10-25] MEDS ORDERED: Flumazenil 0.5 mg/5 ml 0.1 MG/ML 5 ml VIAL ONE (13:53)
[2023-10-25] MEDS ORDERED: fentaNYL 100 mcg/2 ml 50 MCG/ML VIAL ONE (13:53)
[2023-10-25] MEDS ORDERED: Midazolam 5 mg/5 ml VIAL 1 mg/ml 5 ml VIAL (5 mg) ONE (13:53)
[2023-10-25] MEDS ORDERED: Naloxone 0.4 mg VIAL 0.4 mg/ml 1 ml VIAL ONE (13:53)
[2023-10-25] MEDS: Midazolam 10 mg/10 ml VIAL 1 mg/ml 10 ml VIAL (10 mg) IV SLOW PU ONE (13:59)
[2023-10-25] MEDS: fentaNYL 100 mcg/2 ml 50 MCG/ML VIAL IV SLOW PU ONE (13:59)
[2023-10-26] MEDS ORDERED: Furosemide 40 mg/4 ml IV VIAL IV SLOW PU ONE (03:20)
[2023-10-26] MEDS: Furosemide 40 mg/4 ml IV VIAL IV SLOW PU ONE (03:46)
[2023-10-26 06:00] LABS: ABS Eosinophils 0.1 10^3/uL (0.0-0.5); ABS Lymphocytes 1.5 10^3/uL (1.0-4.8); ABS Monocytes 0.8 10^3/uL (0.0-1.1); ABS Neutrophils 3.1 10^3/uL (1.5-7.6); ABS Nucleated RBC 0.02 10^3/ul; Eosinophil % 2.4 %; Hematocrit 42.4 % (38-53); Hemoglobin 14.6 g/dL (13.2-16.3); Lymphocyte % 27.5 %; Mean Corpuscular Hemoglobin 28.3 pg (27-33); Mean Corpuscular Hgb Conc 34.3 g/dL (31-36); Mean Corpuscular Volume 82.5 fL (80-97); Mean Platelet Volume 8.9 fL (7.5-11.2); Nucleated Red Blood Cells % 0.3 %/100WBC (0.0-0.8); Platelet Count 173 10^3/uL (150-450); Red Blood Count 5.14 10^6/uL (4.06-5.63); Red Cell Distribution Width 15.2 % (12-17); White Blood Count 5.6 10^3/uL (3.6-10.2)
[2023-10-26 06:12] LABS: INR 2.07 (0.83-1.13)
[2023-10-26 06:26] LABS: Calcium 8.9 mg/dL (8.6-10.3); Creatinine, Serum 1.32 mg/dL (0.67-1.17); Potassium 3.9 mmol/L (3.5-5.0); eGFR CKD-EPI 61.7 (>60)
[2023-10-26 06:32] LABS: Magnesium 1.9 mg/dL (1.9-2.7)
[2023-10-26] MEDS: Digoxin IV 0.5 MG/2 ML AMP (0.25 MG/ML) IV SLOW PU ONE (11:20)
[2023-10-27 06:24] LABS: INR 1.78 (0.83-1.13)
[2023-10-27 06:52] LABS: Albumin 3.8 g/dL (3.2-5.2); Albumin/Globulin Ratio 1.6 (1-3); Calcium 9.1 mg/dL (8.6-10.3); Creatinine, Serum 1.28 mg/dL (0.67-1.17); Globulin 2.4 g/dL (2-4); Potassium 3.9 mmol/L (3.5-5.0); Total Bilirubin 1.5 mg/dL (0.2-1.0); Total Protein 6.2 g/dL (6.4-8.9); eGFR CKD-EPI 64.1 (>60)
[2023-10-27] MEDS: Amiodarone 360 MG IVPREMIX 360 MG/200 ML BAG IV SCH ×2 (14:23→19:56)
[2023-10-28 04:56] LABS: INR 1.65 (0.83-1.13)
[2023-10-28 05:33] LABS: Calcium 8.8 mg/dL (8.6-10.3); Creatinine, Serum 1.23 mg/dL (0.67-1.17); Potassium 3.8 mmol/L (3.5-5.0); eGFR CKD-EPI 67.2 (>60)
[2023-10-28 05:43] LABS: ABS Eosinophils 0.1 10^3/uL (0.0-0.5); ABS Lymphocytes 2.2 10^3/uL (1.0-4.8); ABS Monocytes 0.9 10^3/uL (0.0-1.1); ABS Neutrophils 3.4 10^3/uL (1.5-7.6); ABS Nucleated RBC 0.04 10^3/ul; Eosinophil % 1.8 %; Hematocrit 43.4 % (38-53); Hemoglobin 14.8 g/dL (13.2-16.3); Lymphocyte % 33.4 %; Mean Corpuscular Hemoglobin 28.2 pg (27-33); Mean Corpuscular Hgb Conc 34.1 g/dL (31-36); Mean Corpuscular Volume 82.5 fL (80-97); Mean Platelet Volume 9.6 fL (7.5-11.2); Nucleated Red Blood Cells % 0.6 %/100WBC (0.0-0.8); Platelet Count 202 10^3/uL (150-450); Red Blood Count 5.26 10^6/uL (4.06-5.63); Red Cell Distribution Width 15.2 % (12-17); White Blood Count 6.6 10^3/uL (3.6-10.2)
[2023-10-28] MEDS: Potassium Chlor 20 meq TAB.ER PO ONE (08:13)
[2023-10-28] MEDS: Amiodarone 400 mg TAB PO SCH (10:24)
[2023-10-28 15:30] VITALS: BP 105/78
[2023-10-28] MEDS ORDERED: Amiodarone 400 mg TAB PO SCH (17:00)
== END 2023-10-28 15:00 | disposition home or self-care (01) | DRG 308 ==
LOC: ED 06:05 → EDHOLD 10:21 → SUATTDRO 10:21 → EDHOLD 17:57 → MEDTELE 18:38 → ICU 10-27 14:44
PROVIDERS: ADMIT Hospitalist; ATTEND Internal Medicine Critical Care Medicine
PROC: CARDVER (ICD-10-PCS; 2023-10-25 13:45)

== ENCOUNTER 2023-11-17 17:09 | Inpatient (IN) ==
[2023-11-17 18:44] LABS: ABS Basophils 0.1 10^3/uL (0.0-0.1); ABS Eosinophils 0.2 10^3/uL (0.0-0.5); ABS Lymphocytes 1.6 10^3/uL (1.0-4.8); ABS Neutrophils 6.4 10^3/uL (1.5-7.6); ABS Nucleated RBC 0.02 10^3/ul; Eosinophil % 1.9 %; Hematocrit 40.1 % (38-53); Hemoglobin 13.7 g/dL (13.2-16.3); Lymphocyte % 17.5 %; Mean Corpuscular Hgb Conc 34.1 g/dL (31-36); Mean Corpuscular Volume 82.1 fL (80-97); Mean Platelet Volume 9.6 fL (7.5-11.2); Nucleated Red Blood Cells % 0.2 %/100WBC (0.0-0.8); Platelet Count 153 10^3/uL (150-450); Red Blood Count 4.88 10^6/uL (4.06-5.63); Red Cell Distribution Width 15.8 % (12-17); White Blood Count 9.3 10^3/uL (3.6-10.2)
[2023-11-17 19:01] LABS: Albumin/Globulin Ratio 1.7 (1-3); Calcium 8.8 mg/dL (8.6-10.3); Creatinine, Serum 1.29 mg/dL (0.67-1.17); Globulin 2.4 g/dL (2-4); Potassium 4.6 mmol/L (3.5-5.0); Total Bilirubin 2.6 mg/dL (0.2-1.0); Total Protein 6.4 g/dL (6.4-8.9); eGFR CKD-EPI 63.5 (>60)
[2023-11-17 19:07] LABS: INR 6.02 (0.83-1.13)
[2023-11-17 20:10] LABS: High Sensitivity Troponin 1 Hr 32 pg/mL (<20)
[2023-11-17] MEDS: Lactated Ringers 1000 ml BAG 1,000 ML IV ONE (20:19)
[2023-11-17] MEDS: Iohexol 300 (CONTRAST) 10 ML SDV IV ONE (22:29)
[2023-11-18] MEDS: Furosemide 20 mg/2 ml IV VIAL IV SLOW PU ONE ×2 (00:51→11:12)
[2023-11-18 01:55] LABS: Urine Appearance Clear; Urine Bilirubin Negative (Negative); Urine Blood Negative (Negative); Urine Color Light-Yellow; Urine Glucose Negative (Negative); Urine Ketones Negative (Negative); Urine Nitrite Negative (Negative); Urine Protein Negative (Negative); Urine Specific Gravity 1.031 (1.002-1.030); Urine Urobilinogen Negative (Negative); Urine pH 5.5 (5.0-8.0)
[2023-11-18] MEDS: Metoprolol Tartrate 5 mg VIAL 5 ml VIAL (1 mg/ml) IV ONE (02:18)
[2023-11-18] MEDS: Amiodarone 150 mg IVPREMIX 150 MG/100 ML BAG IV ONE (06:43)
[2023-11-18] MEDS ORDERED: Polyethylene Glycol 3350 17 GM PACKET PO PRN (08:17)
[2023-11-18] MEDS ORDERED: Warfarin per PHARMACY **NOTE FOLLOW UP SCH (09:00)
[2023-11-18 09:18] LABS: Magnesium 1.9 mg/dL (1.9-2.7)
[2023-11-18] MEDS: Bumetanide IV 0.25 MG/ML 4 ml VIAL (1 mg) IV SLOW PU ONE (15:51)
[2023-11-18] MEDS: Warfarin - No Order Today **NOTE FOLLOW UP ONE (20:01)
[2023-11-18] MEDS: Warfarin DAILY REMINDER **NOTE FOLLOW UP SCH (20:32)
[2023-11-18] MEDS: Iodixanol (CONTRAST) 320 MG/ML 100 ML SDV IV ONE (23:23)
[2023-11-19 05:32] LABS: ABS Basophils 0.1 10^3/uL (0.0-0.1); ABS Eosinophils 0.2 10^3/uL (0.0-0.5); ABS Lymphocytes 1.7 10^3/uL (1.0-4.8); ABS Monocytes 0.7 10^3/uL (0.0-1.1); ABS Neutrophils 2.9 10^3/uL (1.5-7.6); ABS Nucleated RBC 0.03 10^3/ul; Eosinophil % 3.1 %; Hematocrit 40.3 % (38-53); Hemoglobin 13.5 g/dL (13.2-16.3); Lymphocyte % 30.6 %; Mean Corpuscular Hemoglobin 27.5 pg (27-33); Mean Corpuscular Hgb Conc 33.5 g/dL (31-36); Mean Platelet Volume 9.5 fL (7.5-11.2); Nucleated Red Blood Cells % 0.5 %/100WBC (0.0-0.8); Platelet Count 148 10^3/uL (150-450); Red Blood Count 4.91 10^6/uL (4.06-5.63); Red Cell Distribution Width 15.8 % (12-17); White Blood Count 5.6 10^3/uL (3.6-10.2)
[2023-11-19 05:41] LABS: INR 2.69 (0.83-1.13)
[2023-11-19 06:14] LABS: Albumin 3.6 g/dL (3.2-5.2); Albumin/Globulin Ratio 1.6 (1-3); Calcium 8.5 mg/dL (8.6-10.3); Creatinine, Serum 1.07 mg/dL (0.67-1.17); Globulin 2.3 g/dL (2-4); Total Bilirubin 2.9 mg/dL (0.2-1.0); Total Protein 5.9 g/dL (6.4-8.9); eGFR CKD-EPI 79.4 (>60)
[2023-11-19] MEDS ORDERED: DAPAGLIFLOZIN 10 MG TAB (NF) PO SCH (09:00)
[2023-11-19] MEDS: CMC:DAPAGLIFLOZIN 10 MG TAB (NF) PO SCH (10:26)
[2023-11-20 06:20] LABS: ABS Basophils 0.1 10^3/uL (0.0-0.1); ABS Eosinophils 0.2 10^3/uL (0.0-0.5); ABS Lymphocytes 1.6 10^3/uL (1.0-4.8); ABS Monocytes 0.9 10^3/uL (0.0-1.1); Eosinophil % 4.1 %; Hematocrit 40.2 % (38-53); Hemoglobin 13.4 g/dL (13.2-16.3); Lymphocyte % 27.8 %; Mean Corpuscular Hemoglobin 27.5 pg (27-33); Mean Corpuscular Hgb Conc 33.3 g/dL (31-36); Mean Corpuscular Volume 82.5 fL (80-97); Mean Platelet Volume 9.3 fL (7.5-11.2); Platelet Count 152 10^3/uL (150-450); Red Blood Count 4.87 10^6/uL (4.06-5.63); Red Cell Distribution Width 15.8 % (12-17); White Blood Count 5.8 10^3/uL (3.6-10.2)
[2023-11-20 06:30] LABS: INR 1.75 (0.83-1.13)
[2023-11-20 07:01] LABS: Albumin 3.5 g/dL (3.2-5.2); Albumin/Globulin Ratio 1.6 (1-3); Calcium 8.7 mg/dL (8.6-10.3); Creatinine, Serum 1.14 mg/dL (0.67-1.17); Globulin 2.2 g/dL (2-4); Potassium 4.4 mmol/L (3.5-5.0); Total Bilirubin 2.4 mg/dL (0.2-1.0); Total Protein 5.7 g/dL (6.4-8.9); eGFR CKD-EPI 73.6 (>60)
[2023-11-20] MEDS: Digoxin IV 0.5 MG/2 ML AMP (0.25 MG/ML) IV SLOW PU ONE (10:31)
[2023-11-20] MEDS: Enoxaparin 100 MG/ML SYR SUBCUT SCH (10:31)
[2023-11-20] MEDS: Iohexol 350 (CONTRAST) 500 ML MDV IV ONE (22:49)
[2023-11-21 06:39] LABS: ABS Basophils 0.1 10^3/uL (0.0-0.1); ABS Eosinophils 0.2 10^3/uL (0.0-0.5); ABS Lymphocytes 1.7 10^3/uL (1.0-4.8); ABS Monocytes 0.8 10^3/uL (0.0-1.1); ABS Neutrophils 2.8 10^3/uL (1.5-7.6); ABS Nucleated RBC 0.01 10^3/ul; Eosinophil % 3.3 %; Hematocrit 40.4 % (38-53); Hemoglobin 13.4 g/dL (13.2-16.3); Lymphocyte % 30.6 %; Mean Corpuscular Hemoglobin 27.3 pg (27-33); Mean Corpuscular Hgb Conc 33.2 g/dL (31-36); Mean Corpuscular Volume 82.3 fL (80-97); Mean Platelet Volume 9.6 fL (7.5-11.2); Nucleated Red Blood Cells % 0.1 %/100WBC (0.0-0.8); Platelet Count 156 10^3/uL (150-450); Red Blood Count 4.91 10^6/uL (4.06-5.63); Red Cell Distribution Width 15.8 % (12-17); White Blood Count 5.7 10^3/uL (3.6-10.2)
[2023-11-21 06:47] LABS: INR 1.71 (0.83-1.13)
[2023-11-21 06:53] LABS: Albumin 3.6 g/dL (3.2-5.2); Albumin/Globulin Ratio 1.6 (1-3); Creatinine, Serum 1.25 mg/dL (0.67-1.17); Globulin 2.2 g/dL (2-4); Potassium 3.9 mmol/L (3.5-5.0); Total Protein 5.8 g/dL (6.4-8.9); eGFR CKD-EPI 65.9 (>60)
[2023-11-21] MEDS: Digoxin IV 0.5 MG/2 ML AMP (0.25 MG/ML) IV SLOW PU ONE (13:18)
[2023-11-22 06:54] LABS: INR 1.86 (0.83-1.13)
[2023-11-22 07:07] LABS: Calcium 8.8 mg/dL (8.6-10.3); Creatinine, Serum 1.28 mg/dL (0.67-1.17); Potassium 3.9 mmol/L (3.5-5.0); eGFR CKD-EPI 64.1 (>60)
[2023-11-22 08:34] LABS: Phosphorus 4.1 mg/dL (2.5-5.0)
[2023-11-22] MEDS: KCL 20 MEQ/100 ML IVPREMIX 20 MEQ/100 ML BAG IV ONE (09:01)
[2023-11-22] MEDS ORDERED: Midazolam 5 mg/5 ml VIAL 1 mg/ml 5 ml VIAL (5 mg) ONE (10:55)
[2023-11-22] MEDS ORDERED: fentaNYL 100 mcg/2 ml 50 MCG/ML VIAL ONE (10:55)
[2023-11-22] MEDS ORDERED: Flumazenil 0.5 mg/5 ml 0.1 MG/ML 5 ml VIAL ONE (10:55)
[2023-11-22] MEDS ORDERED: Naloxone 0.4 mg VIAL 0.4 mg/ml 1 ml VIAL ONE (10:55)
[2023-11-22] MEDS: fentaNYL 100 mcg/2 ml 50 MCG/ML VIAL IV SLOW PU ONE (16:17)
[2023-11-22] MEDS: Midazolam 10 mg/10 ml VIAL 1 mg/ml 10 ml VIAL (10 mg) IV SLOW PU ONE (16:17)
[2023-11-22 21:00] LABS: TSH Ultra Thyroid Stim Horm 1.9 mcIU/mL (0.34-5.60)
[2023-11-23 07:01] LABS: INR 2.01 (0.83-1.13)
[2023-11-24 06:37] LABS: INR 2.27 (0.83-1.13)
[2023-11-24 07:17] LABS: Creatinine, Serum 1.4 mg/dL (0.67-1.17); eGFR CKD-EPI 57.5 (>60)
[2023-11-24 09:05] VITALS: BP 111/89
== END 2023-11-24 11:30 | disposition home or self-care (01) | DRG 308 ==
LOC: EDHOLD 17:09 → ED 17:09 → MEDTELE 11-18 12:10 → SUATTDRO 11-19 13:46
PROVIDERS: ADMIT Hospitalist; ATTEND Internal Medicine

== ENCOUNTER 2023-12-09 12:20 | Observation (INO) ==
[2023-12-09 13:01] LABS: ABS Basophils 0.1 10^3/uL (0.0-0.1); ABS Eosinophils 0.2 10^3/uL (0.0-0.5); ABS Lymphocytes 1.2 10^3/uL (1.0-4.8); ABS Monocytes 0.8 10^3/uL (0.0-1.1); ABS Neutrophils 4.5 10^3/uL (1.5-7.6); ABS Nucleated RBC 0.01 10^3/ul; Eosinophil % 2.6 %; Hematocrit 42.7 % (38-53); Hemoglobin 14.1 g/dL (13.2-16.3); Lymphocyte % 17.8 %; Mean Corpuscular Hemoglobin 26.8 pg (27-33); Mean Corpuscular Hgb Conc 32.9 g/dL (31-36); Mean Corpuscular Volume 81.3 fL (80-97); Mean Platelet Volume 9.6 fL (7.5-11.2); Nucleated Red Blood Cells % 0.1 %/100WBC (0.0-0.8); Platelet Count 155 10^3/uL (150-450); Red Blood Count 5.26 10^6/uL (4.06-5.63); Red Cell Distribution Width 15.5 % (12-17); White Blood Count 6.7 10^3/uL (3.6-10.2)
[2023-12-09 13:50] LABS: Albumin/Globulin Ratio 1.5 (1-3); Calcium 8.8 mg/dL (8.6-10.3); Creatinine, Serum 1.38 mg/dL (0.67-1.17); Globulin 2.6 g/dL (2-4); Potassium 4.1 mmol/L (3.5-5.0); Total Bilirubin 2.1 mg/dL (0.2-1.0); Total Protein 6.6 g/dL (6.4-8.9); eGFR CKD-EPI 58.5 (>60)
[2023-12-09 14:33] LABS: High Sensitivity Troponin 1 Hr 18 pg/mL (<20)
[2023-12-09 14:37] LABS: INR 6.75 (0.83-1.13)
[2023-12-09] MEDS: Digoxin IV 0.5 MG/2 ML AMP (0.25 MG/ML) IV SLOW PU ONE (17:40)
[2023-12-09] MEDS: Furosemide 40 mg/4 ml IV VIAL IV SLOW PU ONE (20:00)
[2023-12-10 06:58] LABS: INR 5.38 (0.83-1.13)
[2023-12-10 06:59] LABS: Calcium 8.6 mg/dL (8.6-10.3); Creatinine, Serum 1.4 mg/dL (0.67-1.17); Potassium 3.6 mmol/L (3.5-5.0); eGFR CKD-EPI 57.5 (>60)
[2023-12-10] MEDS: Magnesium Sulfate IV 1GM/100ML 1 GM/100 ML BAG IV ONE (08:25)
[2023-12-10] MEDS: Digoxin IV 0.5 MG/2 ML AMP (0.25 MG/ML) IV SLOW PU ONE (09:28)
[2023-12-10] MEDS: KCL 20 MEQ/100 ML IVPREMIX 20 MEQ/100 ML BAG IV ONE (09:36)
[2023-12-10] MEDS ORDERED: Midazolam 5 mg/5 ml VIAL 1 mg/ml 5 ml VIAL (5 mg) ONE (12:19)
[2023-12-10] MEDS ORDERED: fentaNYL 100 mcg/2 ml 50 MCG/ML VIAL ONE (12:19)
[2023-12-10] MEDS ORDERED: Naloxone 0.4 mg VIAL 0.4 mg/ml 1 ml VIAL ONE (12:19)
[2023-12-10] MEDS ORDERED: Flumazenil 0.5 mg/5 ml 0.1 MG/ML 5 ml VIAL ONE (12:19)
[2023-12-10] MEDS ORDERED: Naloxone 0.4 mg VIAL 0.4 mg/ml 1 ml VIAL IV PUSH PRN (12:44)
[2023-12-10] MEDS ORDERED: Flumazenil 0.5 mg/5 ml 0.1 MG/ML 5 ml VIAL IV PRN (12:44)
[2023-12-10] MEDS: fentaNYL 100 mcg/2 ml 50 MCG/ML VIAL IV SLOW PU ONE (14:18)
[2023-12-10] MEDS: Midazolam 10 mg/10 ml VIAL 1 mg/ml 10 ml VIAL (10 mg) IV SLOW PU ONE (14:19)
[2023-12-11 07:26] LABS: Calcium 9.1 mg/dL (8.6-10.3); Creatinine, Serum 1.42 mg/dL (0.67-1.17); Potassium 4.3 mmol/L (3.5-5.0); eGFR CKD-EPI 56.6 (>60)
[2023-12-11 07:31] LABS: INR 2.86 (0.83-1.13)
[2023-12-11 09:25] VITALS: BP 105/66
[2023-12-11] MEDS ORDERED: Digoxin IV 0.5 MG/2 ML AMP (0.25 MG/ML) IV SLOW PU ONE (11:41)
== END 2023-12-11 14:45 | disposition home or self-care (01) ==
LOC: EDHOLD 12:20 → ED 12:20 → SUATTDRO 17:23 → MED 19:50
PROVIDERS: ADMIT Internal Medicine; ATTEND Hospitalist
PROC: CARDVER (ICD-10-PCS; 2023-12-10 12:15)

== ENCOUNTER 2024-01-14 07:32 | Observation (INO) ==
[2024-01-14 08:17] LABS: ABS Basophils 0.1 10^3/uL (0.0-0.1); ABS Eosinophils 0.3 10^3/uL (0.0-0.5); ABS Lymphocytes 1.4 10^3/uL (1.0-4.8); ABS Neutrophils 6.2 10^3/uL (1.5-7.6); ABS Nucleated RBC 0.01 10^3/ul; Eosinophil % 2.9 %; Hematocrit 47.2 % (38-53); Hemoglobin 15.4 g/dL (13.2-16.3); Lymphocyte % 15.7 %; Mean Corpuscular Hemoglobin 25.7 pg (27-33); Mean Corpuscular Hgb Conc 32.6 g/dL (31-36); Mean Corpuscular Volume 78.9 fL (80-97); Mean Platelet Volume 9.8 fL (7.5-11.2); Nucleated Red Blood Cells % 0.1 %/100WBC (0.0-0.8); Platelet Count 152 10^3/uL (150-450); Red Blood Count 5.98 10^6/uL (4.06-5.63); Red Cell Distribution Width 16.7 % (12-17)
[2024-01-14 08:22] LABS: INR 4.67 (0.83-1.13)
[2024-01-14 08:25] LABS: Activated Partial Thrombo Time 51.2 seconds (26.0-38.0)
[2024-01-14 08:41] LABS: High Sens Troponin Baseline 25 pg/mL (<20); High Sensitivity Troponin 1 Hr 25 pg/mL (<20)
[2024-01-14 08:42] LABS: ALT 22 U/L (7-52); AST 27 U/L (13-39); Albumin 4.4 g/dL (3.2-5.2); Albumin/Globulin Ratio 1.6 (1-3); Alkaline Phosphatase 86 U/L (35-149); Anion Gap 10 mmol/L (2-16); Blood Urea Nitrogen 36 mg/dL (6-24); CO2 Carbon Dioxide 28 mmol/L (22-32); Calcium 9.6 mg/dL (8.6-10.3); Chloride 102 mmol/L (101-111); Globulin 2.8 g/dL (2-4); Glucose 135 mg/dL (70-100); Potassium 3.9 mmol/L (3.5-5.0); Sodium 140 mmol/L (135-145); Total Bilirubin 1.7 mg/dL (0.2-1.0); Total Protein 7.2 g/dL (6.4-8.9); eGFR CKD-EPI 37.5 (>60)
[2024-01-14 09:44] LABS: High Sensitivity Troponin 1 Hr 20 pg/mL (<20)
[2024-01-14] MEDS: Furosemide 40 mg/4 ml IV VIAL IV SLOW PU ONE (10:11)
[2024-01-14] MEDS: Metoprolol Tartrate 5 mg VIAL 5 ml VIAL (1 mg/ml) IV ONE (11:26)
[2024-01-14] MEDS: Digoxin IV 0.5 MG/2 ML AMP (0.25 MG/ML) IV SLOW PU ONE (11:37)
[2024-01-14] MEDS: Etomidate 20 mg/10 ml 2 MG/ML 10 ml VIAL IV ONE (12:17)
[2024-01-14] MEDS ORDERED: fentaNYL 100 mcg/2 ml 50 MCG/ML VIAL ONE (12:17)
[2024-01-14] MEDS ORDERED: Warfarin per PHARMACY **NOTE FOLLOW UP SCH (15:00)
[2024-01-14] MEDS: Potassium Chlor 20 meq TAB.ER PO ONE (16:23)
[2024-01-14] MEDS: MAGNESIUM SULFATE 100 MG PO SCH (16:24)
[2024-01-14] MEDS: Warfarin - No Order Today **NOTE FOLLOW UP ONE (16:24)
[2024-01-14] MEDS: DAPAGLIFLOZIN 10 MG TAB (NF) PO SCH (16:24)
[2024-01-14] MEDS: Magnesium Sulf 4 GM/100 ML IV 4,000 MG/100 ML BAG IVPB ONE (18:07)
[2024-01-15 06:20] LABS: INR 2.92 (0.83-1.13)
[2024-01-15 07:52] LABS: Creatinine, Serum 1.63 mg/dL (0.67-1.17); eGFR CKD-EPI 47.9 (>60)
[2024-01-15 15:01] VITALS: BP 97/68
[2024-01-15 15:59] LABS: Ferritin 31.4 ng/mL (24-336)
== END 2024-01-15 17:50 | disposition home or self-care (01) ==
LOC: EDHOLD 07:32 → ED 07:32 → MEDTELE 15:08
PROVIDERS: ADMIT Internal Medicine; ATTEND Internal Medicine Hematology & Oncology

== ENCOUNTER 2024-02-04 05:55 | Observation (INO) ==
[2024-02-04 06:44] LABS: ABS Basophils 0.1 10^3/uL (0.0-0.1); ABS Eosinophils 0.4 10^3/uL (0.0-0.5); ABS Lymphocytes 2.4 10^3/uL (1.0-4.8); ABS Monocytes 1.2 10^3/uL (0.0-1.1); ABS Neutrophils 5.5 10^3/uL (1.5-7.6); ABS Nucleated RBC 0.02 10^3/ul; Eosinophil % 4.1 %; Hematocrit 44.7 % (38-53); Hemoglobin 14.9 g/dL (13.2-16.3); Lymphocyte % 24.9 %; Mean Corpuscular Hgb Conc 33.2 g/dL (31-36); Mean Corpuscular Volume 78.3 fL (80-97); Mean Platelet Volume 9.5 fL (7.5-11.2); Nucleated Red Blood Cells % 0.3 %/100WBC (0.0-0.8); Platelet Count 215 10^3/uL (150-450); Red Blood Count 5.71 10^6/uL (4.06-5.63); Red Cell Distribution Width 17.1 % (12-17); White Blood Count 9.7 10^3/uL (3.6-10.2)
[2024-02-04 07:06] LABS: INR 3.6 (0.83-1.13)
[2024-02-04 07:11] LABS: High Sens Troponin Baseline 31 pg/mL (<20)
[2024-02-04 07:27] LABS: ALT 26 U/L (7-52); AST 31 U/L (13-39); Albumin 4.3 g/dL (3.2-5.2); Albumin/Globulin Ratio 1.5 (1-3); Alkaline Phosphatase 103 U/L (35-149); Anion Gap 12 mmol/L (2-16); Blood Urea Nitrogen 33 mg/dL (6-24); CO2 Carbon Dioxide 25 mmol/L (22-32); Calcium 9.3 mg/dL (8.6-10.3); Chloride 102 mmol/L (101-111); Creatinine, Serum 1.69 mg/dL (0.67-1.17); Digoxin < 0.2 ng/ml (0.8-2.0); Globulin 2.8 g/dL (2-4); Glucose 114 mg/dL (70-100); Potassium 4.2 mmol/L (3.5-5.0); Sodium 139 mmol/L (135-145); Total Bilirubin 1.8 mg/dL (0.2-1.0); Total Protein 7.1 g/dL (6.4-8.9); eGFR CKD-EPI 45.9 (>60)
[2024-02-04 08:14] LABS: Magnesium 2.1 mg/dL (1.9-2.7)
[2024-02-04 08:17] LABS: High Sensitivity Troponin 1 Hr 27 pg/mL (<20)
[2024-02-04] MEDS ORDERED: Furosemide 40 mg/4 ml IV VIAL ONE (08:56)
[2024-02-04] MEDS: Furosemide 40 mg/4 ml IV VIAL IV ONE (08:58)
[2024-02-04] MEDS ORDERED: fentaNYL 100 mcg/2 ml 50 MCG/ML VIAL ONE (10:12)
[2024-02-04] MEDS ORDERED: Naloxone 0.4 mg VIAL 0.4 mg/ml 1 ml VIAL ONE (10:12)
[2024-02-04] MEDS ORDERED: Flumazenil 0.5 mg/5 ml 0.1 MG/ML 5 ml VIAL ONE (10:12)
[2024-02-04] MEDS ORDERED: Midazolam 5 mg/5 ml VIAL 1 mg/ml 5 ml VIAL (5 mg) ONE (10:13)
[2024-02-04] MEDS: fentaNYL 100 mcg/2 ml 50 MCG/ML VIAL IV SLOW PU ONE (11:16)
[2024-02-04] MEDS: Midazolam 10 mg/10 ml VIAL 1 mg/ml 10 ml VIAL (10 mg) IV SLOW PU ONE (11:16)
[2024-02-04] MEDS ORDERED: Warfarin per PHARMACY **NOTE FOLLOW UP SCH ×2 (15:00)
[2024-02-04] MEDS: Amiodarone 400 mg TAB PO SCH (15:37)
[2024-02-05] MEDS: Warfarin - No Order Today **NOTE FOLLOW UP ONE (00:11)
[2024-02-05] MEDS: Warfarin DAILY REMINDER **NOTE FOLLOW UP SCH (00:12)
[2024-02-05 06:25] LABS: INR 3.36 (0.83-1.13)
[2024-02-05 06:56] LABS: Calcium 8.7 mg/dL (8.6-10.3); Creatinine, Serum 1.51 mg/dL (0.67-1.17); Potassium 3.9 mmol/L (3.5-5.0); eGFR CKD-EPI 52.5 (>60)
[2024-02-05] MEDS ORDERED: Amiodarone 400 mg TAB PO SCH (09:00)
[2024-02-05 10:06] VITALS: BP 97/62
== END 2024-02-05 12:40 | disposition home or self-care (01) ==
LOC: EDHOLD 05:55 → ED 05:55 → MEDTELE 16:31
PROVIDERS: ADMIT Internal Medicine; ATTEND Internal Medicine
PROC: CARDVER (ICD-10-PCS; 2024-02-04 09:45)